=== PATIENT | female | born 1970 | race Caucasian/White ===

== ENCOUNTER 2024-01-13 08:35 | Outpatient (CLI) | payer BC, SELFPAY | END 2024-01-13 08:36 | disposition home or self-care (01) | LOC: NFLDREF 01-15 12:11 | PROVIDERS: Visit Provider Physician Assistant | DX: N39.0 Urinary tract infection, site not specified (principal) | CPT/HCPCS: 87086 ==

== ENCOUNTER 2024-09-16 14:21 | Outpatient (CLI) | payer OTHER, SELFPAY | END 2024-09-16 14:22 | disposition home or self-care (01) | LOC: NFLDREF 09-21 00:47 | PROVIDERS: Visit Provider Nurse Practitioner Family | DX: R30.0 Dysuria (principal); R82.90 Unspecified abnormal findings in urine | CPT/HCPCS: 87086 ==